=== PATIENT | female | born 1975 | race Caucasian/White ===

== ENCOUNTER 2017-11-09 00:38 | Emergency (ER) | payer OTHER ==
[~2017-11-09] VITALS: Ht 167.6 cm; Wt 133.8 kg
[~2017-11-09 00:38] MED LIST: IBUP-2213; [UNRECOGNIZED DRUG - CODE]
[2017-11-09 00:43] VITALS: BP 143/100
[2017-11-09] MEDS ORDERED: HYDROcodone/APAP 10/325 MG 1 TAB TAB PO STA (02:08)
[2017-11-09] MEDS ORDERED: ONDANSETRON 4 MG ODT PO ONE (02:10)
[2017-11-09] MEDS ORDERED: KETOROLAC 30 MG/ML VIAL IM ONE (02:10)
[2017-11-09 02:28] LABS: APPEARANCE,URINE SL CLOUDY (CLEAR); BILIRUBIN,URINE NEGATIVE (NEGATIVE); BLOOD, URINE 2+ (NEGATIVE); COLOR,URINE YELLOW (YELLOW); LEUKOCYTE ESTERASE ,URINE NEGATIVE (NEGATIVE); NITRITE, URINE NEGATIVE (NEGATIVE); PH,URINE 5.5 (5.0-9.0); UGLUCOSE NEGATIVE (NEGATIVE)
[2017-11-09 02:44] LABS: HEMOGLOBIN 12.8 g/dL (12.0-16.0); MEAN CORPUSCULAR HEMOGLOBIN 25 pg (27-31); MEAN CORPUSCULAR HGB CONC 33 g/dL (33-37); MEAN CORPUSCULAR VOLUME 76.1 fL (80-94); RED BLOOD CELL COUNT(AUTO) 5.12 MIL/uL (4.20-5.40); WHITE BLOOD COUNT (AUTO) 11.5 K/uL (4.8-10.8)
[2017-11-09 02:45] LABS: ANION GAP 11.6 (8-16); BASOPHILS # (AUTO) 0.2 K/uL (0.00-0.22); BASOPHILS % (AUTO) 1.4 % (0.0-2.0); CARBON DIOXIDE 26.2 mmol/L (21-32); CREATININE 1.2 mg/dL (0.6-1.3); EOSINOPHILS # (AUTO) 0.2 K/uL (0-0.4); EOSINOPHILS % (AUTO) 1.6 % (0.0-4.0); LYMPHOCYTES # (AUTO) 2.9 K/uL (2.5-16.5); LYMPHOCYTES % (AUTO) 25.5 % (20.5-51.1); MONOCYTES # (AUTO) 0.6 K/uL (0.8-1.0); MONOCYTES % (AUTO) 5.3 % (1.7-9.3); NEUTROPHILS # (AUTO) 7.6 K/uL (1.8-7.7); NEUTROPHILS % (AUTO) 66.2 % (42.2-75.2); PLATELET COUNT (AUTO) 324 K/uL (140-450); POTASSIUM 3.8 mmol/L (3.5-5.1); RED CELL DISTRIBUTION WIDTH 15.4 % (11.6-13.7); TOTAL BILIRUBIN 0.2 mg/dL (0.0-1.0)
[2017-11-09 02:46] LABS: ALBUMIN 3.1 g/dL (3.4-5.0)
[2017-11-09 02:59] LABS: RBC,URINE 3-10 (FEW) /HPF (0-5)
[2017-11-09] MEDS ORDERED: METOCLOPRAMIDE 10 MG/2 ML INJ VIAL IM ONE (03:30)
[2017-11-09 04:37] VITALS: BP 101/59
== END 2017-11-09 04:38 | disposition home or self-care (01) ==
LOC: MED 00:38
DX: K80.20 Calculus of gallbladder without cholecystitis without obstruction (principal); D25.9 Leiomyoma of uterus, unspecified; E03.9 Hypothyroidism, unspecified; Z79.899 Other long term (current) drug therapy; M19.90 Unspecified osteoarthritis, unspecified site
CPT/HCPCS: 36415; 74176; 80053; 81001; 81025; 83690; 85025; 87086; 96372; 99285; J1885; J2765; S0119

== ENCOUNTER 2020-05-06 10:18 | Day surgery (SDC) | payer OTHER, SELFPAY ==
[~2020-05-06] VITALS: Ht 167.6 cm; Wt 132.4 kg
[2020-05-06] MEDS ORDERED: BUPIVACAINE-MPF/EPI 0.25% 10 ML VIAL INJ ONE (10:39)
[2020-05-06] MEDS ORDERED: MEPERIDINE 25 MG/ML SYR IVP PRN (12:00)
[2020-05-06] MEDS ORDERED: HYDROmorphone 1 MG/ML AMP IVP PRN ×2 (12:00→13:45)
[2020-05-06] MEDS ORDERED: ONDANSETRON 4 MG/2 ML VIAL IVP PRN (12:00)
[2020-05-06] MEDS ORDERED: LACTATED RINGERS 1,000 ML IV SCH (12:00)
[2020-05-06] MEDS ORDERED: SEVOFLURANE 250 ML BTL INH ONE (12:30)
[2020-05-06] MEDS ORDERED: METOCLOPRAMIDE 10 MG/2 ML INJ VIAL ONE (12:30)
[2020-05-06] MEDS ORDERED: fentaNYL citrate 0.05 MG/ML VIAL ONE (12:30)
[2020-05-06] MEDS ORDERED: DEXAMETHASONE 4 MG/ML VIAL ONE (12:30)
[2020-05-06] MEDS ORDERED: GLYCOPYRROLATE 0.2 MG/ML VIAL ONE (12:30)
[2020-05-06] MEDS ORDERED: KETOROLAC 30 MG/ML VIAL ONE (12:30)
[2020-05-06] MEDS ORDERED: SUCCINYLCHOLINE CHLORIDE 200 MG/10 ML VIAL IVP ONE (12:30)
[2020-05-06] MEDS ORDERED: LIDOCAINE MPF 2% 100 MG/5 ML VIAL INJ ONE (12:30)
[2020-05-06] MEDS ORDERED: ROCURONIUM 50 MG/5 ML VIAL IV ONE (12:30)
[2020-05-06] MEDS ORDERED: NEOSTIGMINE 1:1000 10 MG/10 ML VIAL ONE (12:30)
[2020-05-06] MEDS ORDERED: PROPOFOL 200 MG/20 ML VIAL IV ONE (12:30)
[2020-05-06] MEDS ORDERED: MIDAZOLAM 2 MG/2 ML VIAL ONE (12:30)
[2020-05-06] MEDS ORDERED: MORPHINE SULFATE 2 MG/ML SYR IVP PRN (13:45)
[2020-05-06] MEDS ORDERED: HYDROcodone/APAP 5/325 MG 1 TAB TAB PO PRN (13:45)
[2020-05-06] MEDS ORDERED: MORPHINE SULFATE 4 MG/ML SYR IV PRN (13:45)
[2020-05-06] MEDS ORDERED: ONDANSETRON 4 MG/2 ML VIAL IV PRN (13:45)
[2020-05-06] MEDS ORDERED: ACETAMINOPHEN 325 MG TAB PO PRN (13:45)
[2020-05-06] MEDS: HYDROmorphone PFS 2 MG/ML SYR ONE ×2 (14:05→14:15)
[2020-05-06] MEDS ORDERED: HYDROcodone/APAP 5/325 MG 1 TAB TAB PO ONE (15:35)
== END 2020-05-06 16:17 | disposition home or self-care (01) ==
LOC: MFCC 10:18 → MDS 10:18
PROVIDERS: ATTEND Surgery
DX: K80.00 Calculus of gallbladder with acute cholecystitis without obstruction (principal); F32.9 Major depressive disorder, single episode, unspecified; M19.90 Unspecified osteoarthritis, unspecified site; F41.9 Anxiety disorder, unspecified; Z90.710 Acquired absence of both cervix and uterus; Z96.651 Presence of right artificial knee joint; E66.01 Morbid (severe) obesity due to excess calories; E03.9 Hypothyroidism, unspecified; M06.9 Rheumatoid arthritis, unspecified; Z79.899 Other long term (current) drug therapy
CPT/HCPCS: 36415; 47562; 71045; 82374; 86886; 86900; 86901; 87426; J0690; J1170; J3490; J7030; J7060; J0330; J1100; J1885; J2001; J2250; J2704; J2710; J2765; J3010

== ENCOUNTER 2022-02-10 09:14 | Emergency (ER) | payer OTHER ==
[~2022-02-10] VITALS: Ht 167.6 cm; Wt 132.4 kg
[2022-02-10 09:17] VITALS: BP 120/87
--- NOTE | 2022-02-10 09:23 | NUR ---
Pt ambulated to bed 02 with steady/even gait.
[2022-02-10] MEDS ORDERED: ACETAMINOPHEN EXTRA STRENGTH 500 MG TAB PO ONE (09:35)
[2022-02-10] MEDS ORDERED: KETOROLAC 30 MG/ML VIAL IM ONE (09:35)
[2022-02-10] MEDS ORDERED: LIDOCAINE 5% 1 EA PATCH TP ONE (09:35)
[2022-02-10] MEDS ORDERED: ALUMINUM HYD/MAG/SIMETHICONE 30 ML UDC PO ONE (09:40)
[2022-02-10] MEDS ORDERED: FAMOTIDINE 20 MG TAB PO ONE (09:40)
--- NOTE | 2022-02-10 09:41 | NUR ---
LAB AT BEDSIDE FOR BLOOD DRAW
--- NOTE | 2022-02-10 09:48 | NUR ---
46 Y/O FEMALE C/O LOWER BACK/TAILBONE/BUTTOCK PAIN XYESTERDAY. PT DENIES RECENT INJURY/FALLS/TRAUMA. PT TOOK GABAPENTIN AND METHOCARBAMOL WITHOUT RELIEF. PT REPORTS CHRONIC BACK PAIN BUT STATES THIS PAIN IS WORSE. PT ALSO C.O ABD PAIN- WHERE SURGICAL SCARS ARE WHEN GALLBLADDER WAS X3 YRS AGO. PT DENIES ABD PAIN NOW BUT STATES IT COMES BACK EVERY MONTH. DENIES N/V/DYSURIA/HEMATURIA. PT A/O X4 WITH EVEN AND UNLABORED RESPIRATIONS PMH: anxiety, panic attacks, chronic low back pain, rheumatoid arthritis, hypothyroidism, thyroid cancer (2010), HLD Sx: cholecystectomy, [id number]
[2022-02-10 10:09] LABS: EOSINOPHILS # (AUTO) 0.2 K/uL (0-0.4); HEMOGLOBIN 13.3 g/dL (12.0-16.0); LYMPHOCYTES # (AUTO) 2.9 K/uL (2.5-16.5); MONOCYTES # (AUTO) 0.6 K/uL (0.8-1.0); PLATELET COUNT (AUTO) 358 K/uL (140-450)
[2022-02-10 10:11] LABS: ALBUMIN 2.9 g/dL (3.4-5.0); ANION GAP 12.6 (8-16); POTASSIUM 3.6 mmol/L (3.5-5.1); TOTAL BILIRUBIN 0.3 mg/dL (0.0-1.0)
[2022-02-10 10:19] LABS: APPEARANCE,URINE HAZY (CLEAR); BILIRUBIN,URINE 1+ (NEGATIVE); BLOOD, URINE 2+ (NEGATIVE); COLOR,URINE YELLOW (YELLOW); LEUKOCYTE ESTERASE ,URINE NEGATIVE (NEGATIVE); NITRITE, URINE NEGATIVE (NEGATIVE); UGLUCOSE NEGATIVE (NEGATIVE)
[2022-02-10 10:23] LABS: BASOPHILS % (AUTO) 0.5 % (0.0-2.0); EOSINOPHILS % (AUTO) 1.7 % (0.0-4.0); HEMATOCRIT 40.2 % (36-48); LYMPHOCYTES % (AUTO) 27.3 % (20.5-51.1); MEAN CORPUSCULAR HEMOGLOBIN 27 pg (27-31); MEAN CORPUSCULAR HGB CONC 33 g/dL (33-37); NEUTROPHILS # (AUTO) 6.9 K/uL (1.8-7.7); NEUTROPHILS % (AUTO) 64.5 % (42.2-75.2); RED CELL DISTRIBUTION WIDTH 16.6 % (11.6-13.7); WHITE BLOOD COUNT (AUTO) 10.7 K/uL (4.8-10.8)
[2022-02-10 10:29] LABS: RBC,URINE 0-5 /HPF (0-5)
[2022-02-10] MEDS ORDERED: CEPH-588 PO (11:08)
[2022-02-10] MEDS ORDERED: ACET-10509 PO (11:08)
[2022-02-10] MEDS ORDERED: NAPR-54 PO (11:08)
--- NOTE | 2022-02-10 11:17 | NUR ---
Patient discharged with v/s stable. Written and verbal after care instructions ABOUT UTI AND LOWER BACK SPRAIN/STRAIN given and explained. Patient alert, oriented and verbalized understanding of instructions. Ambulatory with steady gait. All questions addressed prior to discharge. ID band removed. Patient advised to follow up with PMD. Rx of TYLENOL EXTRA STRENGTH AND NAPROXEN given. Patient educated on indication of medication including possible reaction and side effects. Opportunity to ask questions provided and answered.
== END 2022-02-10 11:17 | disposition home or self-care (01) ==
LOC: MED 09:14
DX: N39.0 Urinary tract infection, site not specified (principal); M54.50 Low back pain, unspecified
CPT/HCPCS: 36415; 80053; 81001; 81025; 83690; 85025; 87086; 96372; 99284; J1885

== ENCOUNTER 2022-05-11 09:34 | Emergency (ER) | payer OTHER ==
[~2022-05-11] VITALS: Ht 167.6 cm; Wt 90.3 kg
[~2022-05-11 09:34] MED LIST changes: +ACET-10509 PO; +CEPH-588 PO; +NAPR-54 PO
[2022-05-11 09:48] VITALS: BP 132/79
--- NOTE | 2022-05-11 09:56 | NUR ---
Batsheva morrell in [facility] - 05/11/22 at 0957 by [email or web address] PT AMB TO BED 12
--- NOTE | 2022-05-11 09:57 | NUR ---
PT AMB TO BED `10
--- NOTE | 2022-05-11 10:00 | NUR ---
46/F WALKED IN C/O RIGHT LOWER LEG PAIN AND BRUISING ONSET 9DAYS. PT DENIES ANY RECENT INJURY OR TRAUMA. 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
[2022-05-11] MEDS ORDERED: CEPH-588 PO (12:04)
== END 2022-05-11 12:00 | disposition home or self-care (01) ==
LOC: MED 09:34
DX: L03.115 Cellulitis of right lower limb (principal); E03.9 Hypothyroidism, unspecified; Z79.899 Other long term (current) drug therapy; Z88.2 Allergy status to sulfonamides; Z85.850 Personal history of malignant neoplasm of thyroid
CPT/HCPCS: 99281

== ENCOUNTER 2023-02-20 16:45 | Emergency (ER) | payer OTHER ==
[~2023-02-20] VITALS: Ht 167.6 cm; Wt 132.4 kg
[2023-02-20 17:47] VITALS: BP 152/78; PULSE 82; RESP 18; TEMP 97.3; O2SAT 100
[2023-02-20] MEDS ORDERED: NAPROXEN 500 MG TAB PO STA (18:07)
[2023-02-20] MEDS ORDERED: DICL20GE TP (18:40)
[2023-02-20] MEDS ORDERED: KETOROLAC 30 MG/ML VIAL IM ONE (18:50)
== END 2023-02-20 20:04 | disposition home or self-care (01) ==
LOC: MED 16:45
DX: M25.512 Pain in left shoulder (principal); M06.812 Other specified rheumatoid arthritis, left shoulder; E03.9 Hypothyroidism, unspecified; Z88.2 Allergy status to sulfonamides; Z79.899 Other long term (current) drug therapy
CPT/HCPCS: 73030; 96372; 99283; J1885

== ENCOUNTER 2023-05-18 18:46 | Emergency (ER) | payer OTHER ==
[~2023-05-18] VITALS: Ht 167.6 cm; Wt 131.5 kg
[~2023-05-18 18:46] MED LIST changes: +DICL20GE TP
[2023-05-18 19:05] VITALS: BP 157/88; PULSE 70; RESP 20; TEMP 98.2; O2SAT 99
[2023-05-18] MEDS ORDERED: TETRACAINE 1% 2 ML AMP INJ ONE (19:20)
[2023-05-18] MEDS: FLUORESCEIN OPTH STRIP 1 MG OP ONE (19:31)
[2023-05-18] MEDS ORDERED: CIPR10DR4 RIGHT EYE (19:54)
[2023-05-18] MEDS ORDERED: IBUP-2213 PO (19:54)
[2023-05-18 20:02] VITALS: BP 130/80; PULSE 70; RESP 20; TEMP 98.2; O2SAT 99
== END 2023-05-18 20:02 | disposition home or self-care (01) ==
LOC: MED 18:46
DX: H16.001 Unspecified corneal ulcer, right eye (principal); E03.9 Hypothyroidism, unspecified; Z88.2 Allergy status to sulfonamides; Z79.899 Other long term (current) drug therapy
CPT/HCPCS: 99283